=== PATIENT | male | born 2000 | race Caucasian/White ===

== ENCOUNTER 2022-12-18 11:13 | Day surgery (SDC) | payer OTHER ==
[~2022-12-18] VITALS: Ht 188 cm; Wt 77.1 kg
[~2022-12-18 11:13] MED LIST: EPINEPHrine INJ 1 MG/ML 1ML AMP PN ONE; LR 1,000 ML IV SCH; MIDAZOLAM INJ 2MG/2ML VIAL IV PRN; ONDANSETRON 4MG 2ML VIAL As Ordered ONE; ONDANSETRON 4MG 2ML VIAL IV PRN; OXYC1TAB23; ROPIvacaine 0.5% 30ML VIAL PN ONE; fentaNYL 100 MCG/2 ML INJECTION IV PRN; oxyCODONE 5MG TAB PO PRN; propofoL 200 MG/20 ML VIAL As Ordered ONE
[2022-12-18] MEDS ORDERED: EPINEPHrine INJ 1 MG/ML 1ML AMP PN ONE (13:05)
[2022-12-18] MEDS ORDERED: LIDOCAINE 1% SDV 5ML VIAL PN ONE (13:05)
[2022-12-18] MEDS ORDERED: ROPIvacaine 0.5% 30ML VIAL PN ONE (13:05)
[2022-12-18] MEDS: MIDAZOLAM INJ 2MG/2ML VIAL IV PRN ×2 (13:10→14:20)
[2022-12-18] MEDS: fentaNYL 100 MCG/2 ML INJECTION IV PRN ×2 (13:10→14:20)
[2022-12-18] MEDS ORDERED: fentaNYL 100 MCG/2 ML INJECTION As Ordered ONE (13:56)
[2022-12-18] MEDS ORDERED: LIDOCAINE W/EPINEPHRINE 1% 20ML VIAL As Ordered ONE (14:21)
[2022-12-18] MEDS ORDERED: ceFAZolin 2 GM/D5W 50 ML IV BAG As Ordered ONE (14:34)
[2022-12-18] MEDS ORDERED: ACETAMINOPHEN 1000MG 100ML IV BAG As Ordered ONE (14:41)
[2022-12-18] MEDS ORDERED: BUPIVACAINE/EPIN 0.5% 30ML VIAL As Ordered ONE (17:08)
[2022-12-18] MEDS ORDERED: BUPIVACAINE HCL 0.5% 30ML VIAL As Ordered ONE (17:09)
[2022-12-18] MEDS ORDERED: ONDANSETRON 4MG 2ML VIAL IV PRN (17:25)
[2022-12-18] MEDS ORDERED: fentaNYL 100 MCG/2 ML INJECTION IV PRN (17:25)
[2022-12-18] MEDS ORDERED: oxyCODONE 5MG TAB PO PRN (17:25)
[2022-12-18] MEDS ORDERED: LR 1,000 ML IV SCH (17:25)
[2022-12-18] MEDS ORDERED: PERC5TAB12 PO (17:31)
[2022-12-18 18:07] VITALS: BP 126/67
== END 2022-12-18 18:37 | disposition home or self-care (01) ==
LOC: M SDC 11:13
PROVIDERS: ATTEND Orthopaedic Surgery Hand Surgery
DX: S42.302A Unspecified fracture of shaft of humerus, left arm, initial encounter for closed fracture (principal); V00.311A Fall from snowboard, initial encounter; Y92.89 Other specified places as the place of occurrence of the external cause; Y93.23 Activity, snow (alpine) (downhill) skiing, snowboarding, sledding, tobogganing and snow tubing; Z87.891 Personal history of nicotine dependence; Z79.899 Other long term (current) drug therapy
CPT/HCPCS: 24515; 64415; 76000; C1713; J0131; J0690; J1100; J2250; J2405; J3010; S0020

== ENCOUNTER → 2022-12-27 | Outpatient (CLI) | payer OTHER ==
[~2022-12-27] MED LIST changes: -EPINEPHrine INJ 1 MG/ML 1ML AMP PN ONE; -LR 1,000 ML IV SCH; -MIDAZOLAM INJ 2MG/2ML VIAL IV PRN; -ONDANSETRON 4MG 2ML VIAL As Ordered ONE; -ONDANSETRON 4MG 2ML VIAL IV PRN; +PERC5TAB12 PO; -ROPIvacaine 0.5% 30ML VIAL PN ONE; -fentaNYL 100 MCG/2 ML INJECTION IV PRN; -oxyCODONE 5MG TAB PO PRN; -propofoL 200 MG/20 ML VIAL As Ordered ONE
== END ==
LOC: M SOG 08:29
PROVIDERS: ATTEND Physician Assistant
DX: S42.302D Unspecified fracture of shaft of humerus, left arm, subsequent encounter for fracture with routine healing (principal); Z98.890 Other specified postprocedural states

== ENCOUNTER → 2023-01-21 | Outpatient (CLI) | payer OTHER | LOC: M SOG 08:06 | PROVIDERS: ATTEND Physician Assistant | DX: S42.302D Unspecified fracture of shaft of humerus, left arm, subsequent encounter for fracture with routine healing (principal) ==

== ENCOUNTER → 2023-02-27 | Outpatient (CLI) | payer OTHER | LOC: M SOG 08:04 | PROVIDERS: ATTEND Physician Assistant | DX: S42.302D Unspecified fracture of shaft of humerus, left arm, subsequent encounter for fracture with routine healing (principal) ==

== ENCOUNTER → 2023-04-10 | Outpatient (CLI) | payer OTHER | LOC: M SOG 07:51 | PROVIDERS: ATTEND Physician Assistant | DX: S42.302D Unspecified fracture of shaft of humerus, left arm, subsequent encounter for fracture with routine healing (principal); Z98.890 Other specified postprocedural states ==